=== PATIENT | female | born 1945 | race Hispanic/Latino ===

== ENCOUNTER 2017-02-08 12:37 | Outpatient (CLI) | payer MEDICARE ==
--- NOTE | 2017-02-08 16:08 | Mammography Report ---
BILATERAL DIGITAL SCREENING MAMMOGRAM with CAD : 02/08/17 12:37:00 CLINICAL: Routine screening. COMPARISON:06/03/15 FINDINGS: The breasts are heterogeneously dense, which may obscure small masses. No mass, architectural distortion or suspicious calcifications. IMPRESSION: No mammographic evidence of malignancy. BI-RADS CATEGORY: 2 -- Benign RECOMMENDATION: Routine mammographic screening in one year. COMMENT: Patient follow-up letters are generated by our [employer] application.
== END 2017-02-08 12:38 | disposition home or self-care (01) ==
LOC: SPVWC 12:37
PROVIDERS: ATTEND Internal Medicine
DX: Z12.31 Encounter for screening mammogram for malignant neoplasm of breast (principal)
CPT/HCPCS: 77067; G0202

== ENCOUNTER 2017-07-27 13:11 | Outpatient (CLI) | payer MEDICARE ==
--- NOTE | 2017-07-27 14:40 | Mammography Report ---
BONE DEXA:07/27/17 13:11:00 CLINICAL: Postmenopausal. COMPARISON: 06/03/15 TECHNIQUE: Two site bone DEXA performed on an Hologic scanner. FINDINGS: The average BMD of the lumbar spine L1-L4 is 0.887g/cm squared with a T-score of -1.5 and a Z-score of +0.6. This compares to 0.857g/cm squared on the last exam and represents a +3.5% change from the previous baseline. The average BMD of the left hip is 0.869g/cm squared with a T-score of -0.6 and a Z-score of +0.9. This compares to 0.878g/cm squared on the last exam and represents a -1.1% change from the previous baseline. The left femoral neck BMD is 0.646g/cm squared with a T score of -1.8 and a Z score of 0. IMPRESSION: 1. WHO classification: Osteopenia with increased fracture risk based on spine and left femoral neck measurements. 2. A modest improvement in spine BMD and a modest decline in left hip BMD compared to the previous exam. RECOMMENDATION: Clinical correlation and routine screening. DEFINITIONS: BMD = Bone Mineral Density T-score = BMD related to mean peak bone mass of young adult (mean expressed in Standard Deviation) Z-score = Age matched BMD expressed in SD World Health Organization (WHO) Diagnostic Criteria Normal T-score > -1 SD Osteopenia T-score between -1 and -2.4 SD Osteoporosis T-score -2.5 SD or below NOTE: BMD is not the only risk factor for fracture; also consider factors such as the patient's age, risk of falling, previous osteoporotic fracture, family history of osteoporotic fractures, current smoker, and low body weight. Z-scores are not calculated if >80 years of age.
== END 2017-07-27 13:12 | disposition home or self-care (01) ==
LOC: SPVWC 13:11
PROVIDERS: ATTEND Internal Medicine
DX: M85.88 Other specified disorders of bone density and structure, other site (principal); Z78.0 Asymptomatic menopausal state; I10 Essential (primary) hypertension; E03.9 Hypothyroidism, unspecified; Z87.891 Personal history of nicotine dependence
CPT/HCPCS: 77080

== ENCOUNTER 2018-03-29 13:42 | Outpatient (CLI) | payer MEDICARE ==
--- NOTE | 2018-03-30 13:56 | Mammography Report ---
BILATERAL DIGITAL SCREENING MAMMOGRAM with CAD : 03/29/18 13:42:00 CLINICAL: Routine screening. COMPARISON:02/08/17 FINDINGS: The breasts are heterogeneously dense, which may obscure small masses. No mass, architectural distortion or suspicious calcifications. IMPRESSION: No mammographic evidence of malignancy. BI-RADS CATEGORY: 2 -- Benign RECOMMENDATION: Routine mammographic screening in one year. COMMENT: Patient follow-up letters are generated by our [employer] application.
== END 2018-03-29 13:43 | disposition home or self-care (01) ==
LOC: SPVWC 13:42
PROVIDERS: ATTEND Internal Medicine
DX: Z12.31 Encounter for screening mammogram for malignant neoplasm of breast (principal)
CPT/HCPCS: 77067

== ENCOUNTER 2020-04-08 14:14 | Outpatient (CLI) | payer MEDICARE ==
--- NOTE | 2020-04-09 09:00 | Mammography Report ---
DIGITAL SCREENING MAMMOGRAM WITH CAD, 04/08/2020 INDICATION: Routine screening mammography. TECHNIQUE: Digital bilateral 2D mammography was obtained in the craniocaudal and mediolateral obliq ue projections. This examination was interpreted with the benefit of Computer-Aided Detection analysi s. COMPARISON: 03/30/2019 FINDINGS: Breast Density: The breasts are heterogeneously dense, which may obscure small masses. There is no evidence of dominant mass, suspicious calcifications or architectural distortion in eithe r breast. Scattered bilateral calcifications with benign morphology. IMPRESSION: No mammographic evidence of malignancy. Follow up recommendation: Routine yearly BI-RADS Category 2: Benign. A "normal" or negative report should not discourage follow up or biopsy of a clinically significant f inding. A written summary of these findings will be mailed to the patient. The patient will be entered into a mammography reporting system which will generate a reminder letter for the patient's next appointmen t at the appropriate interval. The [employer] recommends yearly mammograms starting at age 40 and continuing as l fahad as a woman is in good health. Breast MRI is recommended for women with an approximate 20-25% or greater lifetime risk of breast cancer, including women with a strong family history of breast or ova kelsey cancer or who have been treated for Hodgkin's disease. Signer Name: Toy Chavez MD Signed: 04/09/2020 8:56 AM Workstation Name: [id number]
== END 2020-04-08 14:15 | disposition home or self-care (01) ==
LOC: SPVWC 14:14
PROVIDERS: ATTEND Internal Medicine
DX: Z12.31 Encounter for screening mammogram for malignant neoplasm of breast (principal)
CPT/HCPCS: 77067

== ENCOUNTER 2020-07-02 11:45 | Outpatient (CLI) | payer MEDICARE ==
[2020-07-02 12:54] LABS: Blood Urea Nitrogen 14 mg/dL (7-17)
--- NOTE | 2020-07-02 14:45 | Cat Scan Report ---
CT abdomen pelvis wo/w con INDICATION: Calculus of qyngigJ21.0/R31.0 HEMATURIA. TECHNIQUE: All CT scans at this location are performed using CT dose reduction for ALARA by means of automated e xposure control. COMPARISON: None available. FINDINGS: Lung bases are clear of acute disease. Multiple tiny stones in the gallbladder. Liver, spleen and no creas appear negative. Both adrenals are normal. There are numerous nonobstructing calculi in each kidney. No hydronephrosis or ureteral calculi. Aneurysm is demonstrated in the distal abdominal aorta, immediately above the bifurcation, measuring 6.3 cm maximum diameter 6.6 cm in length. Pelvis A 7.9 cm cystic mass is demonstrated in the right mid pelvis, probably an ovarian cyst. There is exte nsive diverticulosis of the distal descending and proximal sigmoid colon, but no CT evidence of diver ticulitis. No significant skeletal lesions.. IMPRESSION: 1. Cholelithiasis, but no CT evidence of cholecystitis. 2. Multiple nonobstructing calculi in each kidney. No hydronephrosis or ureteral calculi. 3. 6.3 cm maximum diameter distal abdominal aortic aneurysm. 4. 7.9 cm simple appearing cystic mass in the right adnexa. Signer Name: Fredis Collazo MD Signed: 07/02/2020 2:41 PM Workstation Name: [id number]
== END 2020-07-02 11:46 | disposition home or self-care (01) ==
LOC: CT 11:45
PROVIDERS: ATTEND Urology
DX: N20.0 Calculus of kidney (principal); R31.0 Gross hematuria; I71.4 Abdominal aortic aneurysm, without rupture; K80.20 Calculus of gallbladder without cholecystitis without obstruction
CPT/HCPCS: 36415; 74178; 82565; 84520; Q9967

== ENCOUNTER 2021-09-03 12:47 | Outpatient (CLI) | payer MEDICARE ==
--- NOTE | 2021-09-04 10:26 | Mammography Report ---
DIGITAL SCREENING MAMMOGRAM WITH CAD, 09/03/2021 CLINICAL INFORMATION / INDICATION: Routine screening mammography. SCREENING MAMMO Z12.31 TECHNIQUE: Digital bilateral 2D mammography was obtained in the craniocaudal and mediolateral obliqu e projections. This examination was interpreted with the benefit of Computer-Aided Detection analysis . COMPARISON: 04/08/2020, 03/30/2019. FINDINGS: Breast Density: There are scattered areas of fibroglandular density. No dominant mass, suspicious calcifications, or architectural distortion in either breast. Both breasts contain benign calcification. Nipple inversion is unchanged. IMPRESSION: No mammographic evidence of malignancy. Follow up recommendation: Routine yearly. Clinical correlation is recommended with regards to the pat ient's nipple inversion. BI-RADS Category 2: Benign. A "normal" or negative report should not discourage follow up or biopsy of a clinically significant f inding. A written summary of these findings will be mailed to the patient. The patient will be entered into a mammography reporting system which will generate a reminder letter for the patient's next appointmen t at the appropriate interval. The [employer] recommends yearly mammograms starting at age 40 and continuing as l fahad as a woman is in good health. Breast MRI is recommended for women with an approximate 20-25% or greater lifetime risk of breast cancer, including women with a strong family history of breast or ova kelsey cancer or who have been treated for Hodgkin's disease. Signer Name: Chuy Delgado MD Signed: 09/04/2021 10:22 AM Workstation Name: [id number]
== END 2021-09-03 12:48 | disposition home or self-care (01) ==
LOC: SPVWC 12:47
PROVIDERS: ATTEND Internal Medicine
DX: Z12.31 Encounter for screening mammogram for malignant neoplasm of breast (principal); N64.89 Other specified disorders of breast
CPT/HCPCS: 77067